=== PATIENT | male | born 1980 | race Two or more races ===

== ENCOUNTER 2019-12-26 13:14 | Emergency (ER) | payer OTHER ==
[~2019-12-26] VITALS: Ht 177.8 cm; Wt 83.9 kg
[2019-12-26] MEDS ORDERED: TOPROL XL50 M1 (13:21)
[2019-12-26] MEDS ORDERED: PEPCID AC20 MG PO (19:28)
[2019-12-26] MEDS ORDERED: DECADRON6 MG PO (19:28)
[2019-12-26] MEDS ORDERED: SYMBICORT 16010.2 GM IH (19:28)
[2019-12-26] MEDS ORDERED: TESSALON PERLE100 M1 PO (19:28)
== END 2019-12-26 20:19 | disposition home or self-care (01) ==
LOC: ER 13:14
DX: R05 Cough (principal); R53.81 Other malaise; Z03.818 Encounter for observation for suspected exposure to other biological agents ruled out

== ENCOUNTER → 2020-07-14 06:36 | Outpatient (CLI) | payer OTHER ==
[~2020-07-14 06:36] MED LIST: DECADRON6 MG PO; PEPCID AC20 MG PO; SYMBICORT 16010.2 GM IH; TESSALON PERLE100 M1 PO; TOPROL XL50 M1
== END | disposition home or self-care (01) ==
LOC: LAB 06:36
PROVIDERS: ATTEND Emergency Medicine Pediatric Emergency Medicine
DX: Z03.818 Encounter for observation for suspected exposure to other biological agents ruled out (principal)

== ENCOUNTER 2024-11-30 06:00 | Day surgery (SDC) | payer OTHER ==
[2024-11-28 13:20] VITALS: BP 121/84
[~2024-11-30] VITALS: Ht 177.8 cm; Wt 79.4 kg
[~2024-11-30 06:00] MED LIST changes: +CARTIA XT120 MG PO
[2024-11-30] MEDS ORDERED: CEFTRIAXONE SODIUM 2,000 MG VIAL ONE (06:49)
[2024-11-30] MEDS ORDERED: BUPIVACAINE HCL/MPF 0.5% 30ML VIAL ONE (06:49)
[2024-11-30] MEDS ORDERED: ENOXAPARIN SODIUM 40 MG/0.4 ML SYRINGE SUBCUTANEO ONE (06:49)
[2024-11-30] MEDS ORDERED: METRONIDAZOLE/SODIUM CHLORIDE 500 MG/100 ML PIGGYBACK IV ONE (06:49)
[2024-11-30] MEDS ORDERED: SUGAMMADEX SODIUM 200 MG/2 ML VIAL IV ONE (10:12)
[2024-11-30] MEDS ORDERED: PERCOCET 5-3251 EACH PO (11:26)
[2024-11-30] MEDS ORDERED: CELEBREX200MG PO (11:27)
[2024-11-30] MEDS ORDERED: POLY119PG PO (11:27)
[2024-11-30] MEDS ORDERED: NEURONTIN300 MG PO (11:27)
== END 2024-11-30 14:25 | disposition home or self-care (01) ==
LOC: CIR.AMB 06:00
PROVIDERS: ATTEND Surgery
DX: K40.90 Unilateral inguinal hernia, without obstruction or gangrene, not specified as recurrent (principal); K42.0 Umbilical hernia with obstruction, without gangrene
CPT/HCPCS: 49650; C1781